=== PATIENT | female | born 1965 | race Caucasian/White ===

== ENCOUNTER 2023-02-03 06:51 | Day surgery (SDC) | payer BC ==
[2023-01-30 13:35] VITALS: BMI 29.2
[2023-01-30 14:37] LABS: Hemoglobin 14.5 g/dL (12.0-15.5); Mean Corpuscular HGB CONC 34.1 g/dL (32.0-36.0); Mean Corpuscular Hemoglobin 30.3 pg (27.0-33.0); Mean Corpuscular Volume 88.7 fl (81.6-98.3); Mean Platelet Volume 9.4 fl (7.4-10.4); Platelet Count 301 10x3/uL (150-450); RBC Distribution Width 11.4 % (11.5-14.5); Red Blood Cell (RBC) Count 4.79 10x6/uL (3.90-5.03)
[2023-01-30 14:55] LABS: Anion Gap 13 mmol/L (10-20); BUN (Urea Nitrogen) 17 mg/dL (9.8-20.1); Calc. Creatinine Clearance 0 mL/min (70-130); Calcium 9.4 mg/dL (7.8-10.44); Carbon Dioxide 26 mmol/L (22-29); Chloride 104 mmol/L (98-107); Estimated GFR 58; Glucose 90 mg/dL (70-105); Potassium 4.6 mmol/L (3.5-5.1); Sodium 138 mmol/L (136-145)
[~2023-02-03 06:51] MED LIST: Bupivacaine HCl 0.5%/Epinephrine 1:200,000/PF 30 ml Vial ONE; CeleCOXIB 100 MG CAP ONE; Famotidine/PF 20 mg/2ml Vial ONE; Gabapentin 300 MG CAP ONE; Lidocaine 1% w/Epinephrine 1:100K 30 ML VIAL ONE
[2023-02-03] MEDS ORDERED: CEFAZOLIN 2 GM VIAL ONE (07:18)
[2023-02-03] MEDS ORDERED: Midazolam HCl 2 mg/2 ml Vial ONE ×2 (07:32→07:33)
[2023-02-03] MEDS ORDERED: Fentanyl 250 MCG/5 ML VIAL ONE (07:33)
[2023-02-03] MEDS ORDERED: PROPOFOL 40 ML ONE (07:33)
[2023-02-03] MEDS ORDERED: Dexamethasone 4 mg/ml Vial ONE (08:49)
[2023-02-03] MEDS ORDERED: Ketorolac Tromethamine 30 MG/ML VIAL ONE (08:49)
[2023-02-03] MEDS ORDERED: Lidocaine 2% PF 5 ML VIAL ONE (08:49)
[2023-02-03] MEDS ORDERED: Rocuronium Bromide 10 MG/ML (10ML VIAL) ONE (08:49)
[2023-02-03] MEDS ORDERED: Ondansetron PF 4 MG/2 ML Vial ONE (08:49)
[2023-02-03] MEDS ORDERED: Glycopyrrolate 0.2 MG/ML 5 ML SYRINGE ONE (08:49)
[2023-02-03] MEDS ORDERED: fentaNYL 50 mcg/mL 1 mL Vial ONE ×2 (09:32→11:17)
[2023-02-03] MEDS ORDERED: Furosemide 20 MG/2 ML VIAL ONE (09:47)
[2023-02-03] MEDS ORDERED: Bisacodyl 10 MG SUPP PR PRN (10:16)
[2023-02-03] MEDS ORDERED: HYDROcodone/Acetaminophen 5/325 mg Tablet PO PRN ×2 (10:16)
[2023-02-03] MEDS ORDERED: Acetaminophen 325 MG TAB PO PRN (10:16)
[2023-02-03] MEDS ORDERED: Simethicone Chewable 80 MG TAB PO PRN (10:16)
[2023-02-03] MEDS ORDERED: diphenhydrAMINE 25 MG CAP PO PRN (10:16)
[2023-02-03] MEDS ORDERED: Promethazine HCl 25 MG/ML VIAL IM PRN (10:16)
[2023-02-03] MEDS ORDERED: Zolpidem Tartrate 5 MG TAB PO PRN (10:16)
[2023-02-03] MEDS ORDERED: Ondansetron PF 4 MG/2 ML Vial IVP PRN (10:16)
[2023-02-03] MEDS ORDERED: Ketorolac Tromethamine 30 MG/ML VIAL IVP SCH (12:00)
[2023-02-03] MEDS: Lactated Ringer's 1,000 ML IV SCH ×2 (12:18→22:33)
[2023-02-03] MEDS: Ketorolac Tromethamine 30 MG/ML VIAL IVP SCH ×2 (14:53→22:18)
[2023-02-04] MEDS: Ketorolac Tromethamine 30 MG/ML VIAL IVP SCH ×3 (04:04→16:26)
[2023-02-04 04:34] LABS: Mean Corpuscular HGB CONC 33.6 g/dL (32.0-36.0); Mean Corpuscular Hemoglobin 30.1 pg (27.0-33.0); Mean Corpuscular Volume 89.3 fl (81.6-98.3); Mean Platelet Volume 9.6 fl (7.4-10.4); Platelet Count 209 10x3/uL (150-450); RBC Distribution Width 11.7 % (11.5-14.5); Red Blood Cell (RBC) Count 3.66 10x6/uL (3.90-5.03); White Blood Cell (WBC) Count 9.8 10x3/uL (3.5-10.5)
[2023-02-04] MEDS: Lactated Ringer's 1,000 ML IV SCH ×2 (06:37→16:26)
[2023-02-04 08:01] VITALS: BP 108/58; TEMP 98.2
[2023-02-04] MEDS ORDERED: Thyroid 60 MG TAB PO SCH (09:00)
[2023-02-08] MEDS ORDERED: Ibuprofen 800 MG TAB PO SCH (22:00)
== END 2023-02-04 16:40 | disposition home or self-care (01) ==
LOC: CSHSDC 06:51 → CSHPED 11:48 → CSHSDC 02-04 16:40
PROVIDERS: ATTEND Student in an Organized Health Care Education/Training Program
PROC: 0UT94ZZ Resection of Uterus, Percutaneous Endoscopic Approach (ICD-10-PCS; principal; 2023-02-04)
PROC: 0TSD4ZZ Reposition Urethra, Percutaneous Endoscopic Approach (ICD-10-PCS; principal; 2023-02-04)
PROC: 0UT24ZZ Resection of Bilateral Ovaries, Percutaneous Endoscopic Approach (ICD-10-PCS; principal; 2023-02-04)
PROC: 0UT74ZZ Resection of Bilateral Fallopian Tubes, Percutaneous Endoscopic Approach (ICD-10-PCS; principal; 2023-02-04)
DX: N84.0 Polyp of corpus uteri (principal); N87.9 Dysplasia of cervix uteri, unspecified; N81.4 Uterovaginal prolapse, unspecified; N39.3 Stress incontinence (female) (male); N88.8 Other specified noninflammatory disorders of cervix uteri; N72 Inflammatory disease of cervix uteri; N81.3 Complete uterovaginal prolapse; E03.9 Hypothyroidism, unspecified; G89.18 Other acute postprocedural pain; Z88.8 Allergy status to other drugs, medicaments and biological substances; Z98.51 Tubal ligation status; Z79.890 Hormone replacement therapy; Z79.899 Other long term (current) drug therapy
CPT/HCPCS: 80048; 85027; 86850; 86900; 86901; 88307; C1781; J1100; J1885; J1940; J2001; J2250; J2405; J2704; J3010; J7120; Q9968; S0028